=== PATIENT | female | born 1935 | race African-American/Black ===

== ENCOUNTER 2017-12-20 19:49 | Emergency (ER) | payer MEDICARE ==
[2010-08-09 15:02] VITALS: BMI 33.9
== END 2017-12-20 23:15 | disposition home or self-care (01) ==
LOC: D.ER 19:49
DX: M17.0 Bilateral primary osteoarthritis of knee (principal); I10 Essential (primary) hypertension; E11.9 Type 2 diabetes mellitus without complications

== ENCOUNTER → 2018-03-12 16:16 | Outpatient (CLI) | payer MEDICARE ==
[2010-08-09 15:02] VITALS: BMI 33.9
== END | disposition home or self-care (01) ==
LOC: D.CT 16:16
DX: M19.90 Unspecified osteoarthritis, unspecified site (principal)

== ENCOUNTER 2019-04-28 14:00 | Outpatient (CLI) | payer MEDICARE ==
[2010-08-09 15:02] VITALS: BMI 33.9
== END 2019-04-28 14:30 | disposition home or self-care (01) ==
LOC: D.MAMMO 14:00
PROVIDERS: ATTEND Family Medicine
DX: Z12.31 Encounter for screening mammogram for malignant neoplasm of breast (principal)